=== PATIENT | female | born 2000 | race African-American/Black ===

== ENCOUNTER 2018-04-30 18:08 | Emergency (ER) | payer OTHER ==
[2018-04-30 18:48] LABS: BASO % 0.6 % (0.0-1.0); EOS # 0.1 10^3/uL (0.0-0.50); EOS % 0.7 % (0.0-3.0); HEMATOCRIT 40.3 % (36.0-47.0); IMMATURE GRANULOCYTE % 0.1 % (0-3.0); LYMPH # 3.1 10^3/uL (1.5-6.5); LYMPH % 43.2 % (24.0-44.0); MEAN CORPUSCULAR HEMOGLOBIN 27.4 pg (27.0-33.0); MEAN CORPUSCULAR HGB CONC 32.3 g/dl (32.0-36.5); MEAN CORPUSCULAR VOLUME 84.8 fl (80.0-96.0); MONO # 0.4 10^3/uL (0.0-0.8); MONO % 5.8 % (0.0-5.0); NEUTROPHILS # 3.6 10^3/uL (1.8-7.7); NEUTROPHILS % 49.6 % (36.0-66.0); PLATELET COUNT, AUTOMATED 300 10^3/uL (150-450); RED BLOOD COUNT 4.75 10^6/uL (4.00-5.40); WHITE BLOOD COUNT 7.2 10^3/uL (4.0-10.0)
[2018-04-30 19:07] LABS: CONTROL LINE HCG INT CTR LINE PRESENT; HCG, SERUM QUALITATIVE NEGATIVE (NEGATIVE)
[2018-04-30 19:17] LABS: ALBUMIN 3.6 GM/DL (3.2-5.2); ALBUMIN/GLOBULIN RATIO 0.97 (1.00-1.93); ALKALINE PHOSPHATASE 52 U/L (45-117); ALT/SGPT 12 U/L (12-78); AMYLASE 66 U/L (25-115); ANION GAP 8 MEQ/L (8-16); AST/SGOT 12 U/L (7-37); BILIRUBIN,DIRECT < 0.1 MG/DL (0.0-0.2); BILIRUBIN,TOTAL 0.2 MG/DL (0.2-1.0); BLOOD UREA NITROGEN 15 MG/DL (7-18); CALCIUM LEVEL 8.4 MG/DL (8.5-10.1); CARBON DIOXIDE LEVEL 24 MEQ/L (21-32); CHLORIDE LEVEL 108 MEQ/L (98-107); CREATININE FOR GFR 0.97 MG/DL (0.55-1.30); GLUCOSE, FASTING 90 MG/DL (70-100); LIPASE 66 U/L (73-393); SODIUM LEVEL 140 MEQ/L (136-145); TOTAL PROTEIN 7.3 GM/DL (6.4-8.2)
[2018-04-30 19:18] LABS: INR 1.08; PROTHROMBIN TIME 14.1 SECONDS (12.1-14.4)
[2018-04-30 20:34] LABS: CONTROL LINE UCG INT CTR LINE PRESENT; URINE PREG TEST NEGATIVE (NEGATIVE)
[2018-04-30 20:38] LABS: KETONE, URINE AUTO RFX NEGATIVE (NEGATIVE); NITRITE, URINE AUTO RFX NEGATIVE (NEGATIVE); RBC, URINE AUTO RFX 7 /HPF (0-3); SPECIFIC GRAVITY UR AUTO RFX 1.019 (1.002-1.035); SQUAM EPITHELIAL CELL UR AURFX 1 /HPF (0-6); WBC, URINE AUTO RFX 2 /HPF (0-3)
[2018-04-30 20:46] LABS: LEUKOCYTE ESTERASE UR AUTO RFX TRACE (NEGATIVE)
[2018-05-01] MEDS: metroNIDAZOLE (FLAGYL) 500 MG TAB PO (00:30)
[2018-05-01 01:27] LABS: CHLAMYDIA DNA AMPLIFICATION POSITIVE (NEGATIVE); GC DNA AMPLIFICATION NEGATIVE (NEGATIVE)
== END 2018-05-01 00:34 | disposition home or self-care (01) ==
LOC: M ED 05-01 00:34
DX: B37.3 Candidiasis of vulva and vagina (principal); Z79.3 Long term (current) use of hormonal contraceptives
CPT/HCPCS: 76856

== ENCOUNTER 2019-10-17 15:31 | Emergency (ER) | payer OTHER ==
[~2019-10-17] VITALS: Ht 175.3 cm; Wt 69.3 kg
[~2019-10-17 15:31] MED LIST: BIRTH CONTROL; FLAG500T PO
[2019-10-17 16:56] LABS: BASO % 0.3 % (0.0-1.0); EOS % 0.2 % (0.0-3.0); HEMATOCRIT 40.9 % (36.0-47.0); HEMOGLOBIN 13.2 g/dl (12.0-15.5); LYMPH % 21.7 % (24.0-44.0); MEAN CORPUSCULAR HEMOGLOBIN 27.7 pg (27.0-33.0); MEAN CORPUSCULAR HGB CONC 32.3 g/dl (32.0-36.5); MEAN CORPUSCULAR VOLUME 85.7 fl (80.0-96.0); MONO # 0.6 10^3/uL (0.0-0.8); MONO % 6.1 % (0.0-5.0); NEUTROPHILS # 6.6 10^3/uL (1.5-8.5); NEUTROPHILS % 71.4 % (36.0-66.0); PLATELET COUNT, AUTOMATED 309 10^3/uL (150-450); RED BLOOD COUNT 4.77 10^6/uL (4.00-5.40); WHITE BLOOD COUNT 9.2 10^3/uL (4.0-10.0)
[2019-10-17 17:20] LABS: ALBUMIN 3.7 GM/DL (3.2-5.2); ALT/SGPT 12 U/L (12-78); BILIRUBIN,DIRECT < 0.1 MG/DL (0.0-0.2); BILIRUBIN,TOTAL 0.3 MG/DL (0.2-1.0); BLOOD UREA NITROGEN 9 MG/DL (7-18); CALCIUM LEVEL 9.3 MG/DL (8.5-10.1); CARBON DIOXIDE LEVEL 27 MEQ/L (21-32); CHLORIDE LEVEL 109 MEQ/L (98-107); CREATININE FOR GFR 0.82 MG/DL (0.55-1.30); GLOMERULAR FILTRATION RATE > 60.0 (>60); GLUCOSE, FASTING 71 MG/DL (70-100); LIPASE 35 U/L (73-393); POTASSIUM SERUM 4.2 MEQ/L (3.5-5.1); SODIUM LEVEL 138 MEQ/L (136-145); TOTAL PROTEIN 7.5 GM/DL (6.4-8.2)
[2019-10-17] MEDS ORDERED: ISOVUE-370 76% 100ML VIAL (Q9967) As Ordered ONE (17:23)
--- NOTE | 2019-10-17 17:43 | REPVR ---
PROCEDURE INFORMATION: Exam: CT Abdomen And Pelvis With Contrast Exam date and time: 10/17/2019 5:28 PM Age: 19 years old Clinical indication: Abdominal pain; Localized; Right lower quadrant (rlq); Additional info: Rlq pain, h/o appendicitis TECHNIQUE: Imaging protocol: Computed tomography of the abdomen and pelvis with intravenous contrast. Axial, coronal and sagittal reformatted images were created and reviewed. Radiation optimization: All CT scans at this facility use at least one of these dose optimization techniques: automated exposure control; mA and/or kV adjustment per patient size (includes targeted exams where dose is matched to clinical indication); or iterative reconstruction. Contrast material: ISOVUE 370; Contrast volume: 100 ml; Contrast route: IV; COMPARISON: US PELVIC NON-OB COMPLETE 04/30/2018 10:19 PM FINDINGS: Liver: 7 mm low-density lesion in the hepatic dome, too small to characterize. Gallbladder and bile ducts: No radiodense gallstones. No biliary ductal dilatation. Pancreas: Unremarkable. Spleen: Unremarkable. Adrenals: Unremarkable. Kidneys and ureters: Right urothelial thickening and enhancement with associated periureteral edema. No radiodense calculi. No hydronephrosis. Stomach and bowel: No bowel wall thickening. No obstruction. No pneumatosis. Appendix: Normal. Intraperitoneal space: No free fluid. No organized fluid collection. No free air. Vasculature: Unremarkable. No aneurysm. Lymph nodes: No pathologically enlarged lymph nodes. Bladder: Mild circumferential urinary bladder wall thickening and perivesicular edema. Reproductive: Unremarkable. Bones/joints: No acute osseous abnormality. Soft tissues: Unremarkable. IMPRESSION: 1. Ascending right urinary tract infection, as described above. 2. Additional findings, as above. Electronically signed by: Jarad Price On 10/17/2019 17:42:40 PM
[2019-10-17] MEDS ORDERED: FLAG500T PO (17:57)
[2019-10-17] MEDS ORDERED: CIPR-249 PO (17:57)
[2019-10-17] MEDS ORDERED: cefTRIAXone SOD 1 GM in D5W MINI-BAG PLUS 50 ML IV ONE (18:00)
[2019-10-17 18:21] LABS: CHLAMYDIA DNA AMPLIFICATION NEGATIVE (NEGATIVE); GC DNA AMPLIFICATION POSITIVE (NEGATIVE)
[2019-10-17 18:43] VITALS: BP 129/67
[2019-10-19] MEDS ORDERED: DOXY100C37 PO (11:03)
== END 2019-10-17 18:46 | disposition home or self-care (01) ==
LOC: M ED 15:31 → EEVIPCON 15:31 → M ED 18:46
DX: N10 Acute pyelonephritis (principal); N39.0 Urinary tract infection, site not specified; N76.0 Acute vaginitis; A54.9 Gonococcal infection, unspecified
CPT/HCPCS: 74177; 80048; 80076; 81001; 83690; 84702; 85025; 87088; 87186; 87210; 87661; 96365; 99284; J0696; Q9967

== ENCOUNTER 2020-05-22 17:26 | Emergency (ER) | payer OTHER ==
[~2020-05-22] VITALS: Ht 175.3 cm; Wt 73.0 kg
[~2020-05-22 17:26] MED LIST changes: +CIPR-249 PO; +DOXY100C37 PO
[2020-05-22 19:37] LABS: BASO % 0.5 % (0.0-1.0); EOS # 0.1 10^3/uL (0.0-0.5); EOS % 0.7 % (0.0-3.0); HEMATOCRIT 42.9 % (36.0-47.0); HEMOGLOBIN 13.7 g/dl (12.0-15.5); LYMPH # 2.5 10^3/uL (1.5-5.0); LYMPH % 33.7 % (24.0-44.0); MEAN CORPUSCULAR HEMOGLOBIN 27.3 pg (27.0-33.0); MEAN CORPUSCULAR HGB CONC 31.9 g/dl (32.0-36.5); MEAN CORPUSCULAR VOLUME 85.6 fl (80.0-96.0); MONO # 0.3 10^3/uL (0.0-0.8); MONO % 4.5 % (0.0-5.0); NEUTROPHILS # 4.5 10^3/uL (1.5-8.5); NEUTROPHILS % 60.5 % (36.0-66.0); PLATELET COUNT, AUTOMATED 307 10^3/uL (150-450); RED BLOOD COUNT 5.01 10^6/uL (4.00-5.40); WHITE BLOOD COUNT 7.5 10^3/uL (4.0-10.0)
[2020-05-22 20:07] LABS: ALT/SGPT 13 U/L (12-78); BILIRUBIN,DIRECT < 0.1 MG/DL (0.0-0.2); BILIRUBIN,TOTAL 0.3 MG/DL (0.2-1.0); CK-MB VALUE MASS < 1.0 NG/ML (<3.6); CPK CREATINE PHOSPHOKINASE 194 U/L (26-192); MB/CK RELATIVE INDEX 0.52 (< OR =4); NT-PRO BNP 6 PG/ML (<125); THYROID STIMULATING HORMONE 0.435 uIU/ML (0.358-3.740); THYROXINE (T4) 7.9 UG/DL (4.5-12.0); TOTAL PROTEIN 7.2 GM/DL (6.4-8.2); TROPONIN I < 0.02 NG/ML (< 0.10)
--- NOTE | 2020-05-22 20:23 | REP ---
INDICATION: DYSPNEA/COUGH. COMPARISON: None. TECHNIQUE: Two views FINDINGS: Lung palacios are well inflated without infiltrate, effusion, atelectasis or mass. The heart, mediastinal hilar contours are normal. The aorta and airway were unremarkable. No widening of the mediastinum. Bony thorax shows no focal lesion. IMPRESSION: No acute cardiopulmonary disease. <Electronically signed by Carlos Rivera > 05/22/20 2019
[2020-05-22 20:42] VITALS: BP 122/61
--- NOTE | 2020-05-23 16:56 | ECGEPIP ---
[facility] - ED Test Date: 2020-05-22 Pat Name: LION GARCIA Department: Room: - Gender: Female House Mover: NOBLE : 2000 Requested By: SIDNEY VACA PA-C Order Number: [id number] Reading MD: Viviana Lynn Measurements Intervals [place] Rate: 65 P: 60 WY: 146 QRS: 69 QRSD: 88 T: 41 QT: 388 QTc: 406 Interpretive Statements SINUS RHYTHM NSTTW abnormalities NO PRIOR Electronically Signed on 05-23-2020 16:55:59 EST by Viviana Lynn
== END 2020-05-22 21:14 | disposition home or self-care (01) ==
LOC: M ED 17:26
DX: R06.02 Shortness of breath (principal); F33.9 Major depressive disorder, recurrent, unspecified

== ENCOUNTER 2020-06-08 05:40 | Emergency (ER) | payer OTHER ==
[~2020-06-08] VITALS: Ht 175.3 cm; Wt 73.2 kg
[2020-06-08] MEDS ORDERED: NS 1,000 ML IV ONE (06:45)
[2020-06-08 06:54] LABS: BASO % 0.8 % (0.0-1.0); EOS # 0.1 10^3/uL (0.0-0.5); EOS % 1.2 % (0.0-3.0); HEMATOCRIT 40.8 % (36.0-47.0); HEMOGLOBIN 12.7 g/dl (12.0-15.5); LYMPH # 2.5 10^3/uL (1.5-5.0); LYMPH % 50.9 % (24.0-44.0); MEAN CORPUSCULAR HEMOGLOBIN 26.8 pg (27.0-33.0); MEAN CORPUSCULAR HGB CONC 31.1 g/dl (32.0-36.5); MEAN CORPUSCULAR VOLUME 86.1 fl (80.0-96.0); MONO # 0.3 10^3/uL (0.0-0.8); MONO % 6.8 % (0.0-5.0); NEUTROPHILS # 1.9 10^3/uL (1.5-8.5); NEUTROPHILS % 40.1 % (36.0-66.0); PLATELET COUNT, AUTOMATED 300 10^3/uL (150-450); RED BLOOD COUNT 4.74 10^6/uL (4.00-5.40); WHITE BLOOD COUNT 4.9 10^3/uL (4.0-10.0)
[2020-06-08 07:16] LABS: ALBUMIN 3.8 GM/DL (3.2-5.2); ALT/SGPT 14 U/L (12-78); BILIRUBIN,DIRECT < 0.1 MG/DL (0.0-0.2); BILIRUBIN,TOTAL 0.2 MG/DL (0.2-1.0); BLOOD UREA NITROGEN 16 MG/DL (7-18); CARBON DIOXIDE LEVEL 28 MEQ/L (21-32); CHLORIDE LEVEL 109 MEQ/L (98-107); CREATININE FOR GFR 0.89 MG/DL (0.55-1.30); GLOMERULAR FILTRATION RATE > 60.0 (>60); GLUCOSE, FASTING 91 MG/DL (70-100); LIPASE 57 U/L (73-393); POTASSIUM SERUM 4.3 MEQ/L (3.5-5.1); SODIUM LEVEL 141 MEQ/L (136-145)
[2020-06-08 07:24] LABS: HCG, SERUM QUALITATIVE NEGATIVE (NEGATIVE)
[2020-06-08] MEDS ORDERED: ISOVUE-370 76% 100ML VIAL As Ordered ONE (07:41)
[2020-06-08] MEDS ORDERED: KETOROLAC 30 MG/ML 1ML VIAL IV ONE (07:45)
--- NOTE | 2020-06-08 08:17 | REP ---
INDICATION: rlq pain, acute sharp. COMPARISON: 10/17/2019 TECHNIQUE: Axial contrast-enhanced images from the lung bases to the pubic symphysis using 100 cc Isovue 370 intravenous contrast material. Coronal and sagittal reformations obtained. This CT examination was performed using the following dose reduction techniques: Automated exposure control, adjustment of mA and/or kv according to the patient's size, and the use of iterative reconstruction technique. FINDINGS: Liver, spleen, pancreas, gallbladder, bilateral adrenal glands and kidneys are normal. The enteric system demonstrates moderate to significant fecal stasis which may be related to patient's symptoms and pain. A normal terminal ileum, cecum and appendix are identified in the right lower quadrant. Pelvis demonstrates normal bladder and age-appropriate uterus/adnexa. No ascites. No free air. No intraperitoneal or retroperitoneal adenopathy. Abdominal aorta and vasculature appear normal. Musculoskeletal structures are intact and without acute osseous abnormality. IMPRESSION: Moderate to significant fecal stasis which may be related to patient's symptoms. Normal appendix. No ascites, inflammatory stranding, or free air. No further acute abdominopelvic pathology appreciated. <Electronically signed by Cale Muñoz > 06/08/20 0867
[2020-06-08] MEDS ORDERED: COLA100C5 PO (08:22)
[2020-06-08] MEDS ORDERED: MAGN100T PO (08:22)
[2020-06-08] MEDS ORDERED: MACR100C43 PO (08:23)
[2020-06-08 08:37] VITALS: BP 110/58
== END 2020-06-08 08:39 | disposition home or self-care (01) ==
LOC: M ED 05:40
DX: K59.00 Constipation, unspecified (principal); N39.0 Urinary tract infection, site not specified
CPT/HCPCS: 74177; 80048; 80076; 81001; 83690; 84703; 85025; 87086; 96361; 96374; 99284; J1885; Q9967

== ENCOUNTER → 2020-06-22 | Outpatient (CLI) | payer OTHER ==
[~2020-06-22] MED LIST changes: +COLA100C5 PO; +MACR100C43 PO; +MAGN100T PO
--- NOTE | 2020-06-22 15:54 | PFTRPT ---
Height: 69.00 Inches Weight: 158.00 Lbs BSA: 1.87 Diagnosis: SOB DATE: 06/22/2020 ORDERING PHYSICIAN: NAHEED Jansen Pre and post bronchodilator studies have excellent technical quality. Forced vital capacity is normal. FEV1 is in proportion. Obstructive index is therefore normal. Expiratory limit of the flow-volume loop raises a question of suboptimal performance of the required maneuvers. No significant bronchodilator response is identified. Total lung capacity is normal. Residual volume raises a question of air trapping, again although performance of the maneuver was suboptimal. Diffusing capacity is normal and remains normal and uncorrected for alveolar volume. No hemoglobin available for correction. Airway resistance and conductance are normal. IMPRESSION: Cannot rule out a degree of air trapping versus suboptimal performance of the required maneuvers. No other identified abnormalities. Please correlate clinically. MTDD
== END ==
LOC: M CARPUL 15:20
PROVIDERS: ATTEND Nurse Practitioner
DX: R06.00 Dyspnea, unspecified (principal)

== ENCOUNTER 2020-08-31 19:31 | Emergency (ER) | payer OTHER ==
[~2020-08-31] VITALS: Ht 175.3 cm; Wt 75.1 kg
[2020-08-31 19:33] VITALS: BP 118/74
--- OUTSIDE RECORDS SUMMARY | 2020-08-31 19:40 | CCD | Continuity of Care Document ---
Author Author Nelda LOPEZ SUPERVISOR PHOTOENGRAVING Organization Unknown Address [address] [place] [phone] Phone [phone] Care Team Providers Care Lead Burner Helper Name Role Phone Karoline ReaP AUTM [phone] Problems Description No Information Available Social History Type Date Description Comments Sex Unknown Tobacco Use Start: Unknown Never Smoked Cigarettes Smoking Status Reviewed: 06/23/20 Never Smoked Cigarettes ETOH Use Rarely consumes alcohol Allergies, Adverse Reactions, Alerts Description No Known Drug Allergies Medications Description No Information Available Immunizations Description No Information Available Vital Signs Date Vital Result Comment 06/23/2020 1:55pm BP Systolic 115 mmHg BP Diastolic 75 mmHg Heart Rate 65 /min Body Temperature 97.0 F Height 68 inches 5'8" Weight 159.00 lb BMI (Body Mass Index) 24.2 kg/m2 O2 % BldC Oximetry 99 % Results Description No Information Available Procedures Description No Information Available Medical Devices Description No Information Available Encounters Type Date Location Provider Dx Diagnosis Office Visit 06/23/2020 1:45p DR. 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 Pt states developed SOB and went to [facility] ER for evaluation. Labs done at [facility] 04/21/2020- TSH= 0.435Pt states her PCM rechecked TSH and it was worse. Labs done 06/02/2020- TSH: 0.010 Free T4: 0.93 No FH, no goiter on exam. TSH is suppressed consistent with hyperthyroidism. Differential diagnosis includes Grave's disease, thyroiditis, or hot nodule. Doubt Grave's. Did not appreciate goiter or nodules. This may be more consistent with thyroiditis. Will recheck TSH, FT4, add TT3, TGABPt agrees to planRTO 2 weeks. * Follow up:* RTO 2 weeks. JEFF Functional Status Description No Information Available Mental Status Description No Information Available Referrals Refer to Dr Reason for Referral Status Appt Date Roxie Estes MD thyroid Created [address] [place] [phone] Roxie Estes MD thyroid Created [address] [place] [phone]
--- OUTSIDE RECORDS SUMMARY | 2020-08-31 19:40 | CCD | Continuity of Care Document ---
Author Author Nelad LOPEZ BUSINESS SERVICES SALES AGENT Organization Unknown Address [address] [place] [address] Phone [phone] Care Team Providers Care Underwear Welter Name Role Phone Karoline Rea Ashleigh FARFAN AUTM [phone] Problems Description No Information Available Social History Type Date Description Comments Sex Unknown Tobacco Use Start: Unknown Never Smoked Cigarettes Smoking Status Reviewed: 07/06/20 Never Smoked Cigarettes ETOH Use Rarely consumes alcohol Allergies, Adverse Reactions, Alerts Description No Known Drug Allergies Medications Description No Information Available Immunizations Description No Information Available Vital Signs Date Vital Result Comment 07/06/2020 2:51pm BP Systolic 118 mmHg BP Diastolic 65 mmHg Heart Rate 81 /min Body Temperature 97.0 F Height 68 inches 5'8" Weight 161.00 lb BMI (Body Mass Index) 24.5 kg/m2 O2 % BldC Oximetry 99 % 06/23/2020 1:55pm BP Systolic 115 mmHg BP Diastolic 75 mmHg Heart Rate 65 /min Body Temperature 97.0 F Height 68 inches 5'8" Weight 159.00 lb BMI (Body Mass Index) 24.2 kg/m2 O2 % BldC Oximetry 99 % Results Description No Information Available Procedures Description No Information Available Medical Devices Description No Information Available Encounters Type Date Location Provider Dx Diagnosis Office Visit 07/06/2020 2:45p DR. 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 Roxie Estes 07/06/2020 - Munira Lopez NP* E05.00 Thyrotoxicosis with diffuse goiter without thyrotoxic crisis or storm* New Labs:* TSH & Free T4, Scheduled: 08/17/20 * Comments:* Pt here for evaluation of low TSH. Pt states developed SOB and went to [facility] ER for evaluation. Labs done at [facility] 04/21/2020- TSH= 0.435Pt states her PCM rechecked TSH and it was worse. Labs done 06/02/2020- TSH: 0.010 Free T4: 0.93 No FH, no goiter on exam. TSH is suppressed consistent with hyperthyroidism. Differential diagnosis includes Grave's disease, thyroiditis, or hot nodule. Doubt Grave's. Did not appreciate goiter or nodules. This may be more consistent with thyroiditis. Labs done 06/29/2020- TSH= 1.230, FT4= 0.90, TT3= 118.1, TGAB= pendingMost likely thyroiditis Will recheck TSH, FT4 in 2 months. * Follow up:* RTO 2 months JEFF- can do virtual Functional Status Description No Information Available Mental Status Description No Information Available Referrals Refer to Dr Reason for Referral Status Appt Date Roxie Estes MD thyroid Created [address] [place] [phone] Roxie Estes MD thyroid Created [address] [place] [phone]
--- OUTSIDE RECORDS SUMMARY | 2020-08-31 19:40 | CCD | Continuity of Care Document ---
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 Pt states developed SOB and went to [facility] ER for evaluation. Labs done at [facility] 04/21/2020- TSH= 0.435Pt states her PCM rechecked [...] Description No Information Available Referrals Refer to Reason for Referral Status Appt Date Roxie Estes MD thyroid Created [address] [place] [phone] Roxie Estes MD thyroid Created [address] [place] [phone]
--- OUTSIDE RECORDS SUMMARY | 2020-08-31 19:41 | CCD | Continuity of Care Document ---
Author Author Nelda LOPEZ TRASH COLLECTOR Organization Unknown Address [address] [place] [phone] Phone [phone] Care Team Providers Care Political Science Chair Name Role Phone Karoline ReaP AUTM [phone] Problems Description No Information Available Social History [...] Pt states developed SOB and went to [facility] ER for evaluation. Labs done at [facility] 04/21/2020- TSH= 0.435Pt states her PCM [...] Appt Date Roxie Estes MD thyroid Created [address] [place] [phone] Roxie Estes MD thyroid Created [address] [place] [phone]
--- OUTSIDE RECORDS SUMMARY | 2020-08-31 19:41 | CCD ---
Author Author [facility] Organization [facility] Address Unknown Phone Unavailable Care Team Providers Care Light Technician Name Role Phone COOK, B CARTER MANAGER WHOLESALE Unavailable Unavailable COOK, B CARTER MANAGER WHOLESALE Unavailable Unavailable COOK, B CARTER MANAGER WHOLESALE Unavailable Unavailable COOK, B CARTER MANAGER WHOLESALE Unavailable Unavailable COOK, B CARTER MANAGER WHOLESALE Unavailable Unavailable COOK, B CARTER MANAGER WHOLESALE Unavailable Unavailable COOK, B CARTER MANAGER WHOLESALE Unavailable Unavailable COOK, B CARTER MANAGER WHOLESALE Unavailable Unavailable COOK, B CARTER MANAGER WHOLESALE Unavailable Unavailable COOK, B CARTER MANAGER WHOLESALE Unavailable Unavailable COOK, B CARTER MANAGER WHOLESALE Unavailable Unavailable COOK, B CARTER MANAGER WHOLESALE Unavailable Unavailable COOK, B CARTER MANAGER WHOLESALE Unavailable Unavailable COOK, B CARTER MANAGER WHOLESALE Unavailable Unavailable COOK, B CARTER MANAGER WHOLESALE Unavailable Unavailable COOK, B CARTER MANAGER WHOLESALE Unavailable Unavailable COOK, B CARTER MANAGER WHOLESALE Unavailable Unavailable COOK, B CARTER MANAGER WHOLESALE Unavailable Unavailable COOK, B CARTER MANAGER WHOLESALE Unavailable Unavailable COOK, B CARTER MANAGER WHOLESALE Unavailable Unavailable COOK, B CARTER MANAGER WHOLESALE Unavailable Unavailable COOK, B CARTER MANAGER WHOLESALE Unavailable Unavailable COOK, B CARTER MANAGER WHOLESALE Unavailable Unavailable COOK, B CARTER MANAGER WHOLESALE Unavailable Unavailable COOK, B CARTER MANAGER WHOLESALE Unavailable Unavailable COOK, B CARTER MANAGER WHOLESALE Unavailable Unavailable COOK, B CARTER MANAGER WHOLESALE Unavailable Unavailable COOK, B CARTER MANAGER WHOLESALE Unavailable Unavailable COOK, B CARTER MANAGER WHOLESALE Unavailable Unavailable COOK, B CARTER MANAGER WHOLESALE Unavailable Unavailable COOK, B CARTER MANAGER WHOLESALE Unavailable Unavailable COOK, B CARTER MANAGER WHOLESALE Unavailable Unavailable COOK, B CARTER MANAGER WHOLESALE Unavailable Unavailable COOK, B CARTER MANAGER WHOLESALE Unavailable Unavailable COOK, B CARTER MANAGER WHOLESALE Unavailable Unavailable COOK, B CARTER MANAGER WHOLESALE Unavailable Unavailable COOK, B CARTER MANAGER WHOLESALE Unavailable Unavailable COOK, B CARTER MANAGER WHOLESALE Unavailable Unavailable COOK, B CARTER MANAGER WHOLESALE Unavailable Unavailable COOK, B CARTER MANAGER WHOLESALE Unavailable Unavailable COOK, B CARTER MANAGER WHOLESALE Unavailable Unavailable COOK, B CARTER MANAGER WHOLESALE Unavailable Unavailable COOK, B CARTER MANAGER WHOLESALE Unavailable Unavailable COOK, B CARTER MANAGER WHOLESALE Unavailable Unavailable COOK, B CARTER MANAGER WHOLESALE Unavailable Unavailable COOK, B CARTER MANAGER WHOLESALE Unavailable Unavailable COOK, B CARTER MANAGER WHOLESALE Unavailable Unavailable COOK, B CARTER MANAGER WHOLESALE Unavailable Unavailable COOK, B CARTER MANAGER WHOLESALE Unavailable Unavailable COOK, B CARTER MANAGER WHOLESALE Unavailable Unavailable COOK, B CARTER MANAGER WHOLESALE Unavailable Unavailable COOK, B CARTER MANAGER WHOLESALE Unavailable Unavailable COOK, B CARTER MANAGER WHOLESALE Unavailable Unavailable COOK, B CARTER MANAGER WHOLESALE Unavailable Unavailable COOK, B CARTER MANAGER WHOLESALE Unavailable Unavailable COOK, B CARTER MANAGER WHOLESALE Unavailable Unavailable COOK, B CARTER MANAGER WHOLESALE Unavailable Unavailable COOK, B CARTER MANAGER WHOLESALE Unavailable Unavailable COOK, B CARTER MANAGER WHOLESALE Unavailable Unavailable COOK, B CARTER MANAGER WHOLESALE Unavailable Unavailable COOK, B CARTER MANAGER WHOLESALE Unavailable Unavailable COOK, B CARTER MANAGER WHOLESALE Unavailable Unavailable COOK, B CARTER MANAGER WHOLESALE Unavailable Unavailable COOK, B CARTER MANAGER WHOLESALE Unavailable Unavailable TEQUILA VALDIVIA Unavailable Unavailable Marco Antonio, E CRM MARKETING ANALYST Karoline Unavailable [phone] Marco Antonio, E CRM MARKETING ANALYST Karoline Unavailable [phone] Marco Antonio, E CRM MARKETING ANALYST Karoline Unavailable [phone] Marco Antonio, E CRM MARKETING ANALYST Karoline Unavailable [phone] Marco Antonio, E CRM MARKETING ANALYST Karoline Unavailable [phone] Marco Antonio, E CRM MARKETING ANALYST Karoline Unavailable [phone] Marco Antonio, E CRM MARKETING ANALYST Karoline Unavailable [phone] Marco Antonio, E CRM MARKETING ANALYST Karoline Unavailable [phone] Marco Antonio, E CRM MARKETING ANALYST Karoline Unavailable [phone] Marco Antonio, E CRM MARKETING ANALYST [place] Unavailable [phone] Marco Antonio, E CRM MARKETING ANALYST Karoline Unavailable [phone] Marco Antonio, E CRM MARKETING ANALYST Karoline Unavailable [phone] Marco Antonio, E CRM MARKETING ANALYST Karoline Unavailable [phone] Marco Antonio, E CRM MARKETING ANALYST Karoline Unavailable [phone] Marco Antonio, E CRM MARKETING ANALYST Karoline Unavailable [phone] Marco Antonio, E CRM MARKETING ANALYST Karoline Unavailable [phone] NO, PCP Unavailable Unavailable Re-disclosure Warning The records that you are about to access may contain information from federally-assisted alcohol or drug abuse programs. If such information is present, then the following federally mandated warning applies: This information has been disclosed to you from records protected by federal confidentiality rules (42 CFR part 2). The federal rules prohibit you from making any further disclosure of this information unless further disclosure is expressly permitted by the written consent of the person to whom it pertains or as otherwise permitted by 42 CFR part 2. A general authorization for the release of medical or other information is NOT sufficient for this purpose. The Federal rules restrict any use of the information to criminally investigate or prosecute any alcohol or drug abuse patient.The records that you are about to access may contain highly sensitive health information, the redisclosure of which is protected by Article 27-F of the [facility] Public Health law. If you continue you may have access to information: Regarding HIV / AIDS; Provided by facilities licensed or operated by the [facility] Office of Mental Health; or Provided by the [facility] Office for People With Developmental Disabilities. If such information is present, then the following [facility] mandated warning applies: This information has been disclosed to you from confidential records which are protected by state law. State law prohibits you from making any further disclosure of this information without the specific written consent of the person to whom it pertains, or as otherwise permitted by law. Any unauthorized further disclosure in violation of state law may result in a fine or nursing home sentence or both. A general authorization for the release of medical or other information is NOT sufficient authorization for further disc losure. Encounters Encounter Providers Location Date Indications Data Source(s ) Outpatient Attender: CARTER POTTER NP Physical Therapy 07/06/2020 0 1:45:00 PM [facility]IL[facility] STALEY ([facility]) Outpatient Attender: Karoline Rea 07/02/2020 10:38:23 AM EST - 07/03/2020 09:05:00 AM [facility] Patient discharged. Outpatient Attender: TEQUILA VALDIVIA 06/29/2020 10:27:00 AM EST L65.8 [facility] L65.8 Outpatient Attender: CARTER POTTER NP Physical Therapy 06/23/2020 1 2:45:00 PM EST LUÍS ([facility]) Outpatient Attender: Karoline Rea 06/16/2020 01:57:00 PM EST - 06/16/2020 02:57:00 PM [facility] Patient discharged. Outpatient Attender: Karoline ReaConsultant: PCP NO 06/01/2020 12:13:30 PM EST - 06/02/2020 02:51:00 PM [facility] Patient discharged. Outpatient 11/05/2019 04:57:00 AM EDT [facility] Insurance Providers Payer name Policy type / Coverage type Policy ID Covered republican ID Covered republican's relationship to millan Policy Millan Plan Information [facility] [employer] [id number] SP [id number] [facility] HUMANA - O/P [id number] 18 [id number] [facility] O [id number] S [id number] Problems, Conditions, and Diagnoses Code Display Name Description Problem Type Effective Dates Data Source(s) R99 Ill-defined and unknown cause of mortali ty Ill-defined and unknown cause of mortality Diagnosis 07/03/2020 08:05:00 AM [facility] [id number] Migraine without aura, not intractable, without status migrainosus Migraine without aura, not intractable, without status migrainosus Diagnosis 06/16/2020 01:57:00 PM [facility] Results ID Date Data Source [id number] 06/29/2020 10:53:00 AM [facility] Name Value Range Interpretation Code Description Data Gracy rce(s) Supporting Document(s) Leukocytes [#/volume] in Blood by Automated count 7.0 10*3/uL 4.45-10 .71 [facility] Erythrocytes [#/volume] in Blood by Automated count 4.62 10*6/uL 4.20 -5.40 N [facility] Hemoglobin [Moles/volume] in Blood 12.5 g/dL 10.7-15.4 N [facility] Hematocrit [Volume Fraction] of Blood by Automated count 39.9 % 3 7-47 N [facility] Erythrocyte mean corpuscular volume [Ent itic volume] in Cord blood by Automated count 86.4 fL 80-96 N [facility] Erythrocyte mean corpuscular hemoglobin [Entitic mass] by Automated count 27.1 pg 27-31 N [facility] Erythrocyte mean corpuscular hemoglobin concentration [Mass/volume] in Cord blood 31.3 g/dL 33-37 Below low normal [facility] Erythrocyte distribution width [Entitic volume] by Automated count 13 % 11-15 N [facility] Platelets [#/volume] in Blood by Automated count 268 10*3/uL 130-472 N [facility] Platelet mean volume [Entitic volume] in Blood 9.8 fL 9.1-13.1 N [facility] Neutrophils/100 leukocytes in Blood by Automated count 64.4 % 41- 77 N [facility] Neutrophils [#/volume] in Blood by Automated count 4.5 U 1.7-7.6 N [facility] Lymphocytes/100 leukocytes in Blood by Automated count 30.7 % 14- 46 N [facility] Lymphocytes [#/volume] in Blood by Automated count 2.1 U 0.6-4.6 N [facility] Monocytes/100 leukocytes in Blood by Automated count 4.3 % 4-12 N [facility] Monocytes [#/volume] in Blood by Automated count 0.3 U 0.2-1.2 N [facility] Eosinophils/100 leukocytes in Blood by Automated count 0.1 % 0-7 N [facility] Eosinophils [#/volume] in Blood by Automated count 0.0 U 0.0-0.5 N [facility] Basophils/100 leukocytes in Blood by Automated count 0.4 % 0.4-1 .3 N [facility] Basophils [#/volume] in Blood by Automated count 0.0 U 0.0-0.2 N [facility] NUCLEATED RED BLOOD CELL 0 % [facility] NUCLEATED RED BLOOD CELL# 0 U [facility] Immature granulocytes [Presence] in Blood by Automated count 0-2 N [facility] Immature granulocytes [#/volume] in Blood by Automated count 0.0 U 0-0.1 N [facility] Manual Differential panel - Blood NO [facility] ID Date Data Source [id number] 06/29/2020 11:24:00 AM [facility] Name Value Range Interpretation Code Description Data Gracy rce(s) Supporting Document(s) Iron [Mass/volume] in Serum or Plasma 82 ug/dL 50-170 N [facility] Iron values may be falsely elevated in s anam samples frompatients treated with anticoagulants (e.g., hemodialysispatients) Iron binding capacity [Moles/volume] in Serum or Plasma 24 20 -55 N [facility] Iron binding capacity [Mass/volume] in Serum or Plasma 348 ug/dL 250 -450 N [facility] ID Date Data Source [id number] 06/29/2020 11:24:00 AM [facility] Name Value Range Interpretation Code Description Data Gracy rce(s) Supporting Document(s) Thyroxine (T4) free [Mass/volume] in Serum or Plasma 0.97 ng/dL 0.89- 1.76 N [facility] ID Date Data Source [id number] 06/29/2020 11:24:00 AM [facility] Name Value Range Interpretation Code Description Data Gracy rce(s) Supporting Document(s) Thyrotropin [Units/volume] in Serum or Plasma by Detec tion limit <= 0.005 mIU/L 1.48 u[iU]/mL 0.35-5.50 [facility] al ID Date Data Source [id number] 06/18/2020 09:47:00 [place] [address] PHONE: [phone] FAX: [phone] Name .................. : RADHA Connolly Acct Number.................. : [id number] ROOM. ................. : MR Number ................... : [id number] Stay type ............. : O/P Discharge Date......... ... : 06/16/20 Admit Date ......... : 06/16/20 Admit Phys .................... : MARCO ANTONIO HARDIN Date of ....... : 2000 Family Phys ................... : UNKNOWN CO Phone .................. : [phone] Age ................................ : 20 Film# .................. .:[id number] Sex ................................. : F Unsigned transcriptions are preliminary reports and do not represent a medical or legal document MRI BRAIN W/O CONTRAST [id number] COMPLETE:06/16/20 15:00 [facility] [id number] (REASON FOR PROCEDURE MIGRAINES MRI OF THE BRAIN WITHOUT CONTRAST: FINDINGS: Space occupying mass, mass effect or midline shift is not appreciated. Acute ischemic event is not seen on diffusion-weighted imaging. The subarachnoid cisterns are normal in appearance. The ventricles are normal in size and contour. White matter signal abnormality is not seen on inversion and recovery imaging. There is no evidence of demyelinating process. The pituitary gland is unremarkable. The contents of the posterior fossa are normal in appearance. The sinuses, orbits, mastoid air cells and skull are unremarkable. IMPRESSION: No pathology seen on MRI brain. Electronically Reviewed and Signed By Rhiannon Noe MD , 06/18/20 09:47, [facility] Transcribe Initials: PIOTR , Transcribe Date: 06/16/20 23:25, Dictation Date: Copy for: MARCO ANTONIO MONTEMAYOR Copy for: 710 MED REC Page 1 of 1 Name Value Range Interpretation Code Description Data Gracy rce(s) Supporting Document(s) Procedure Social History Code Duration Value Status Description Data Source(s ) Smoking 07/06/2020 12:00:00 AM EST Never Smoked Cigarettes com pleted Never Smoked Cigarettes [facility] ([facility]) Vital Signs ID Date Data Source UNK Name Value Range Interpretation Code Description Data Source(s) Oxygen saturation in Arterial blood by Pulse oximetry 99 % 99 % [facility] ([facility]) Body mass index (BMI) [Ratio] 24.5 kg/m2 24.5 k g/m2 [facility] ([facility]) Body weight 161.00 [lb_av] 161.00 [lb_av] [facility] T ([facility]) Body height 68 [in_i] 68 [in_i] [facility] ([facility]) 5'8" Body temperature 97.0 [degF] 97.0 [degF] [facility] ([facility]) Heart rate 81 /min 81 /min [facility] ([facility]) Diastolic blood pressure 65 mm[Hg] 65 mm[Hg] [facility] ([facility]) Systolic blood pressure 118 mm[Hg] 118 mm[Hg] M [facility] ([facility]) Oxygen saturation in Arterial blood by Pulse oximetry 99 % 99 % [facility] ([facility]) Body mass index (BMI) [Ratio] 24.2 kg/m2 24.2 k g/m2 [facility] ([facility]) Body weight 159.00 [lb_av] 159.00 [lb_av] [facility] T ([facility]) Body height 68 [in_i] 68 [in_i] [facility] ([facility]) 5'8" Body temperature 97.0 [degF] 97.0 [degF] [facility] ([facility] Heart rate 65 /min 65 /min [facility] ([facility] Diastolic blood pressure 75 mm[Hg] 75 mm[Hg] [facility] ([facility] Systolic blood pressure 115 mm[Hg] 115 mm[Hg] M [facility] ([facility])
[2020-08-31] MEDS ORDERED: PERC5TAB12 PO (19:43)
[2020-08-31] MEDS ORDERED: IBUP-1022 PO (19:43)
--- OUTSIDE RECORDS SUMMARY | 2020-08-31 21:08 | CCD ---
Author Author [facility] Organization [facility] Address Unknown Phone Unavailable Care Team Providers Care Manager Country Name Role Phone COOK, B CARTER FANCY WIRE DRAWER Unavailable Unavailable COOK, B CARTER FANCY WIRE DRAWER Unavailable Unavailable COOK, B CARTER FANCY WIRE DRAWER Unavailable Unavailable COOK, B CARTER FANCY WIRE DRAWER Unavailable Unavailable COOK, B CARTER FANCY WIRE DRAWER Unavailable Unavailable COOK, B CARTER FANCY WIRE DRAWER Unavailable Unavailable COOK, B CARTER FANCY WIRE DRAWER Unavailable Unavailable COOK, B CARTER FANCY WIRE DRAWER Unavailable Unavailable COOK, B CARTER FANCY WIRE DRAWER Unavailable Unavailable COOK, B CARTER FANCY WIRE DRAWER Unavailable Unavailable COOK, B CARTER FANCY WIRE DRAWER Unavailable Unavailable COOK, B CARTER FANCY WIRE DRAWER Unavailable Unavailable COOK, B CARTER FANCY WIRE DRAWER Unavailable Unavailable COOK, B CARTER FANCY WIRE DRAWER Unavailable Unavailable COOK, B CARTER FANCY WIRE DRAWER Unavailable Unavailable COOK, B CARTER FANCY WIRE DRAWER Unavailable Unavailable COOK, B CARTER FANCY WIRE DRAWER Unavailable Unavailable COOK, B CARTER FANCY WIRE DRAWER Unavailable Unavailable COOK, B CARTER FANCY WIRE DRAWER Unavailable Unavailable COOK, B CARTER FANCY WIRE DRAWER Unavailable Unavailable COOK, B CARTER FANCY WIRE DRAWER Unavailable Unavailable COOK, B CARTER FANCY WIRE DRAWER Unavailable Unavailable COOK, B CARTER FANCY WIRE DRAWER Unavailable Unavailable COOK, B CARTER FANCY WIRE DRAWER Unavailable Unavailable COOK, B CARTER FANCY WIRE DRAWER Unavailable Unavailable COOK, B CARTER FANCY WIRE DRAWER Unavailable Unavailable COOK, B CARTER FANCY WIRE DRAWER Unavailable Unavailable COOK, B CARTER FANCY WIRE DRAWER Unavailable Unavailable COOK, B CARTER FANCY WIRE DRAWER Unavailable Unavailable COOK, B CARTER FANCY WIRE DRAWER Unavailable Unavailable COOK, B CARTER FANCY WIRE DRAWER Unavailable Unavailable COOK, B CARTER FANCY WIRE DRAWER Unavailable Unavailable COOK, B CARTER FANCY WIRE DRAWER Unavailable Unavailable COOK, B CARTER FANCY WIRE DRAWER Unavailable Unavailable COOK, B CARTER FANCY WIRE DRAWER Unavailable Unavailable COOK, B CARTER FANCY WIRE DRAWER Unavailable Unavailable COOK, B CARTER FANCY WIRE DRAWER Unavailable Unavailable COOK, B CARTER FANCY WIRE DRAWER Unavailable Unavailable COOK, B CARTER FANCY WIRE DRAWER Unavailable Unavailable COOK, B CARTER FANCY WIRE DRAWER Unavailable Unavailable COOK, B CARTER FANCY WIRE DRAWER Unavailable Unavailable COOK, B CARTER FANCY WIRE DRAWER Unavailable Unavailable COOK, B CARTER FANCY WIRE DRAWER Unavailable Unavailable COOK, B CARTER FANCY WIRE DRAWER Unavailable Unavailable COOK, B CARTER FANCY WIRE DRAWER Unavailable Unavailable COOK, B CARTER FANCY WIRE DRAWER Unavailable Unavailable COOK, B CARTER FANCY WIRE DRAWER Unavailable Unavailable COOK, B CARTER FANCY WIRE DRAWER Unavailable Unavailable COOK, B CARTER FANCY WIRE DRAWER Unavailable Unavailable COOK, B CARTER FANCY WIRE DRAWER Unavailable Unavailable COOK, B CARTER FANCY WIRE DRAWER Unavailable Unavailable COOK, B CARTER FANCY WIRE DRAWER Unavailable Unavailable COOK, B CARTER FANCY WIRE DRAWER Unavailable Unavailable COOK, B CARTER FANCY WIRE DRAWER Unavailable Unavailable COOK, B CARTER FANCY WIRE DRAWER Unavailable Unavailable COOK, B CARTER FANCY WIRE DRAWER Unavailable Unavailable COOK, B CARTER FANCY WIRE DRAWER Unavailable Unavailable COOK, B CARTER FANCY WIRE DRAWER Unavailable Unavailable COOK, B CARTER FANCY WIRE DRAWER Unavailable Unavailable COOK, B CARTER FANCY WIRE DRAWER Unavailable Unavailable COOK, B CARTER FANCY WIRE DRAWER Unavailable Unavailable COOK, B CARTER FANCY WIRE DRAWER Unavailable Unavailable COOK, B CARTER FANCY WIRE DRAWER Unavailable Unavailable COOK, B CARTER FANCY WIRE DRAWER Unavailable Unavailable TEQUILA VALDIVIA Unavailable Unavailable Marco Antonio, E JANITORIAL MAINTENANCE WORKER Karoline Unavailable [phone] Marco Antonio, E JANITORIAL MAINTENANCE WORKER Karoline Unavailable [phone] Marco Antonio, E JANITORIAL MAINTENANCE WORKER Karoline Unavailable [phone] Marco Antonio, E JANITORIAL MAINTENANCE WORKER Karoline Unavailable [phone] Marco Antonio, E JANITORIAL MAINTENANCE WORKER Karoline Unavailable [phone] Marco Antonio, E JANITORIAL MAINTENANCE WORKER Karoline Unavailable [phone] Marco Antonio, E JANITORIAL MAINTENANCE WORKER Karoline Unavailable [phone] Marco Antonio, E JANITORIAL MAINTENANCE WORKER Karoline Unavailable [phone] Marco Antonio, E JANITORIAL MAINTENANCE WORKER Karoline Unavailable [phone] Marco Antonio, E JANITORIAL MAINTENANCE WORKER Karoline Unavailable [phone] Marco Antonio, E JANITORIAL MAINTENANCE WORKER Karoline Unavailable [phone] Marco Antonio, E JANITORIAL MAINTENANCE WORKER Karoline Unavailable [phone] Marco Antonio, E JANITORIAL MAINTENANCE WORKER Karoline Unavailable [phone] Marco Antonio, E JANITORIAL MAINTENANCE WORKER Karoline Unavailable [phone] Marco Antonio, E JANITORIAL MAINTENANCE WORKER Karoline Unavailable [phone] Marco Antonio, E JANITORIAL MAINTENANCE WORKER Karloine Unavailable [phone] NO, PCP Unavailable Unavailable Re-disclosure Warning The [...] is protected by Article 27-F of the [facility] Public Health law. If you continue you may have access to information: Regarding HIV / AIDS; Provided by facilities licensed or operated by the [facility] Office of Mental Health; or Provided by the [facility] Office for People With Developmental Disabilities. If such information is present, then the following [facility] mandated warning applies: This information has [...] law may result in a fine or care home sentence or both. A general authorization for the release of medical or other information is NOT sufficient authorization for further disc losure. Encounters Encounter Providers Location Date Indications Data Source(s ) Outpatient Attender: CARTER POTTER NP Physical Therapy 07/06/2020 0 1:45:00 PM [facility]ILA [facility]Y ([facility]) Outpatient Attender: Karoline Rea 07/02/2020 10:38:23 AM EST - 07/03/2020 09:05:00 AM [facility] Patient discharged. Outpatient Attender: TEQUILA VALDIVIA 06/29/2020 10:27:00 AM EST L65.8 [facility] L65.8 Outpatient Attender: CARTER POTTER NP Physical Therapy 06/23/2020 1 2:45:00 PM EST [facility] ([facility]) Outpatient Attender: Karoline Rea 06/16/2020 01:57:00 PM EST - 06/16/2020 02:57:00 PM [facility] Patient discharged. Outpatient Attender: Karoline ReaConsultant: PCP NO 06/01/2020 12:13:30 PM EST - 06/02/2020 02:51:00 PM [facility] Patient discharged. Outpatient 11/05/2019 04:57:00 AM EDT [facility] Insurance Providers Payer name Policy type / Coverage type Policy ID Covered green party ID Covered green party's relationship to millan Policy Millan Plan Information [facility] [employer] [id number] SP [id number] [facility] HUMA[employer] - O/P [id number] 18 [id number] [facility] O [id number] S [id number] Problems, Conditions, and Diagnoses Code Display Name Description Problem Type Effective Dates Data Source(s) R99 Ill-defined and unknown cause of mortali ty Ill-defined and unknown cause of mortality Diagnosis 07/03/2020 08:05:00 AM [facility] [id number] Migraine without aura, not intractable, without status migrainosus Migraine without aura, not intractable, without status migrainosus Diagnosis 06/16/2020 01:57:00 PM [facility] Results ID Date Data Source [id number] 06/29/2020 10:53:00 AM [facility] Name Value Range Interpretation Code Description Data Gracy rce(s) Supporting Document(s) Leukocytes [#/volume] in Blood by Automated count 7.0 10*3/uL 4.45-[address] [facility] Erythrocytes [#/volume] in Blood by Automated count 4.62 10*6/uL 4.20 -5.40 N [facility] Hemoglobin [Moles/volume] in Blood 12.5 g/dL 10.7-15.4 N [facility] Hematocrit [Volume Fraction] of Blood by Automated count 39.9 % 3 7-47 N [facility] Erythrocyte mean corpuscular volume [Ent itic volume] in Cord blood by Automated count 86.4 fL 80-[address] [facility] Erythrocyte mean corpuscular hemoglobin [Entitic mass] by Automated count 27.1 pg 27-31 N [facility] Erythrocyte mean corpuscular hemoglobin concentration [Mass/volume] in Cord blood 31.3 g/dL 33-37 Below low normal [facility] Erythrocyte distribution width [Entitic volume] by Automated count 13 % 11-15 N [facility] Platelets [#/volume] in Blood by Automated count 268 10*3/uL 130-472 N [facility] Platelet mean volume [Entitic volume] in Blood 9.8 fL 9.1-13.1 N [facility] Neutrophils/100 leukocytes in Blood by Automated count 64.4 % 41- 77 N [facility] Neutrophils [#/volume] in Blood by Automated count 4.5 U 1.7-7.6 N [facility] Lymphocytes/100 leukocytes in Blood by Automated count 30.7 % 14- 46 N [facility] Lymphocytes [#/volume] in Blood by Automated count 2.1 U 0.6-4.6 N [facility] Monocytes/100 leukocytes in Blood by Automated count 4.3 % 4-12 N [facility] Monocytes [#/volume] in Blood by Automated count 0.3 U 0.2-1.2 N [facility] Eosinophils/100 leukocytes in Blood by Automated count 0.1 % 0-7 N [facility] Eosinophils [#/volume] in Blood by Automated count 0.0 U 0.0-0.5 N [facility] Basophils/100 leukocytes in Blood by Automated count 0.4 % 0.4-1 .3 N [facility] Basophils [#/volume] in Blood by Automated count 0.0 U 0.0-0.2 N [facility] NUCLEATED RED BLOOD CELL 0 % [facility] NUCLEATED RED BLOOD CELL# 0 U [facility] Immature granulocytes [Presence] in Blood by Automated count 0-2 N [facility] Immature granulocytes [#/volume] in Blood by Automated count 0.0 U 0-0.1 N [facility] Manual Differential panel - Blood NO [facility] ID Date Data Source [id number] 06/29/2020 11:24:00 AM [facility] Name Value Range Interpretation Code Description Data Gracy rce(s) Supporting Document(s) Iron [Mass/volume] in Serum or Plasma 82 ug/dL 50-170 N [facility] Iron values may be falsely elevated in s anam samples frompatients treated with anticoagulants (e.g., hemodialysispatients) Iron binding capacity [Moles/volume] in Serum or Plasma 24 20 -55 N [facility] Iron binding capacity [Mass/volume] in Serum or Plasma 348 ug/dL 250 -450 N [facility] ID Date Data Source [id number] 06/29/2020 11:24:00 AM [facility] Name Value Range Interpretation Code Description Data Gracy rce(s) Supporting Document(s) Thyroxine (T4) free [Mass/volume] in Serum or Plasma 0.97 ng/dL 0.89- 1.76 N [facility] ID Date Data Source [id number] 06/29/2020 11:24:00 AM [facility] Name Value Range Interpretation Code Description Data Gracy rce(s) Supporting Document(s) Thyrotropin [Units/volume] in Serum or Plasma by Detec tion limit <= 0.005 mIU/L 1.48 u[iU]/mL 0.35-5.50 [facility] al ID Date Data Source [id number] 06/18/2020 09:47:00 [place] [address] PHONE: [phone] FAX: [phone] Name .................. : RADHA Connolly Acct Number.................. : [id number] ROOM. ................. : MR Number ................... : [id number] Stay type ............. : O/P Discharge Date......... ... : 06/16/20 Admit Date ......... : 06/16/20 Admit Phys .................... : MARCO ANTONIO HARDIN Date of ....... : 2000 Family Phys ................... : UNKNOWN CO Phone .................. : [phone] Age ................................ : 20 Film# .................. .:[id number] Sex ................................. : F Unsigned transcriptions are preliminary reports and do not represent a medical or legal document MRI BRAIN W/O CONTRAST [id number] COMPLETE:06/16/20 15:00 [facility] [id number] (REASON FOR PROCEDURE MIGRAINES MRI OF THE [...] Cigarettes com pleted Never Smoked Cigarettes [facility] ([facility]) Vital Signs ID Date Data Source UNK Name Value Range Interpretation Code Description Data Source(s) Oxygen saturation in Arterial blood by Pulse oximetry 99 % 99 % [facility] ([facility]) Body mass index (BMI) [Ratio] 24.5 kg/m2 24.5 k g/m2 [facility] ([facility]) Body weight 161.00 [lb_av] 161.00 [lb_av] [facility] T ([facility]) Body height 68 [in_i] 68 [in_i] [facility] ([facility]) 5'8" Body temperature 97.0 [degF] 97.0 [degF] [facility] ([facility]) Heart rate 81 /min 81 /min [facility] ([facility]) Diastolic blood pressure 65 mm[Hg] 65 mm[Hg] [facility] ([facility]) Systolic blood pressure 118 mm[Hg] 118 mm[Hg] M [facility] ([facility]) Oxygen saturation in Arterial blood by Pulse oximetry 99 % 99 % [facility] ([facility]) Body mass index (BMI) [Ratio] 24.2 kg/m2 24.2 k g/m2 [facility] ([facility]) Body weight 159.00 [lb_av] 159.00 [lb_av] [facility] T ([facility]) Body height 68 [in_i] 68 [in_i] [facility] ([facility]) 5'8" Body temperature 97.0 [degF] 97.0 [degF] [facility] ([facility] Heart rate 65 /min 65 /min [facility] ([facility] Diastolic blood pressure 75 mm[Hg] 75 mm[Hg] [facility] ([facility] Systolic blood pressure 115 mm[Hg] 115 mm[Hg] M [facility] ([facility])
== END 2020-08-31 21:15 | disposition home or self-care (01) ==
LOC: M ED 19:31
DX: B34.8 Other viral infections of unspecified site (principal)
CPT/HCPCS: 99282; U0003

== ENCOUNTER 2020-09-03 19:07 | Emergency (ER) | payer OTHER ==
[~2020-09-03] VITALS: Ht 175.3 cm; Wt 75.1 kg
[~2020-09-03 19:07] MED LIST changes: +IBUP-1022 PO; +PERC5TAB12 PO
--- OUTSIDE RECORDS SUMMARY | 2020-09-03 19:15 | CCD ---
Author Author [facility] Organization [facility] Address Unknown Phone Unavailable Care Team Providers Care Gin Clerk Name Role Phone COOK, B CARTER FEDERAL AID COORDINATOR Unavailable Unavailable COOK, B CARTER FEDERAL AID COORDINATOR Unavailable Unavailable COOK, B CARTER FEDERAL AID COORDINATOR Unavailable Unavailable COOK, B CARTER FEDERAL AID COORDINATOR Unavailable Unavailable COOK, B CARTER FEDERAL AID COORDINATOR Unavailable Unavailable COOK, B CRATER FEDERAL AID COORDINATOR Unavailable Unavailable COOK, B CARTER FEDERAL AID COORDINATOR Unavailable Unavailable COOK, B CARTER FEDERAL AID COORDINATOR Unavailable Unavailable COOK, B CARTER FEDERAL AID COORDINATOR Unavailable Unavailable COOK, B CARTER FEDERAL AID COORDINATOR Unavailable Unavailable COOK, B CARTER FEDERAL AID COORDINATOR Unavailable Unavailable COOK, B CARTER FEDERAL AID COORDINATOR Unavailable Unavailable COOK, B CARTER FEDERAL AID COORDINATOR Unavailable Unavailable COOK, B CARTER FEDERAL AID COORDINATOR Unavailable Unavailable COOK, B CARTER FEDERAL AID COORDINATOR Unavailable Unavailable COOK, B CARTER FEDERAL AID COORDINATOR Unavailable Unavailable COOK, B CARTER FEDERAL AID COORDINATOR Unavailable Unavailable COOK, B CARTER FEDERAL AID COORDINATOR Unavailable Unavailable COOK, B CARTER FEDERAL AID COORDINATOR Unavailable Unavailable COOK, B CARTER FEDERAL AID COORDINATOR Unavailable Unavailable COOK, B CARTER FEDERAL AID COORDINATOR Unavailable Unavailable COOK, B CARTER FEDERAL AID COORDINATOR Unavailable Unavailable COOK, B CARTER FEDERAL AID COORDINATOR Unavailable Unavailable COOK, B CARTER FEDERAL AID COORDINATOR Unavailable Unavailable COOK, B CARTER FEDERAL AID COORDINATOR Unavailable Unavailable COOK, B CARTER FEDERAL AID COORDINATOR Unavailable Unavailable COOK, B CARTER FEDERAL AID COORDINATOR Unavailable Unavailable COOK, B CARTER FEDERAL AID COORDINATOR Unavailable Unavailable COOK, B CARTER FEDERAL AID COORDINATOR Unavailable Unavailable COOK, B CARTER FEDERAL AID COORDINATOR Unavailable Unavailable COOK, B CARTER FEDERAL AID COORDINATOR Unavailable Unavailable COOK, B CARTER FEDERAL AID COORDINATOR Unavailable Unavailable COOK, B CARTER FEDERAL AID COORDINATOR Unavailable Unavailable COOK, B CARTER FEDERAL AID COORDINATOR Unavailable Unavailable COOK, B CARTER FEDERAL AID COORDINATOR Unavailable Unavailable COOK, B CARTER FEDERAL AID COORDINATOR Unavailable Unavailable COOK, B CARTER FEDERAL AID COORDINATOR Unavailable Unavailable COOK, B CARTER FEDERAL AID COORDINATOR Unavailable Unavailable COOK, B CARTER FEDERAL AID COORDINATOR Unavailable Unavailable COOK, B CARTER FEDERAL AID COORDINATOR Unavailable Unavailable COOK, B CARTER FEDERAL AID COORDINATOR Unavailable Unavailable COOK, B CARTER FEDERAL AID COORDINATOR Unavailable Unavailable COOK, B CARTER FEDERAL AID COORDINATOR Unavailable Unavailable COOK, B CARTER FEDERAL AID COORDINATOR Unavailable Unavailable COOK, B CARTER FEDERAL AID COORDINATOR Unavailable Unavailable COOK, B CARTER FEDERAL AID COORDINATOR Unavailable Unavailable COOK, B CARTER FEDERAL AID COORDINATOR Unavailable Unavailable COOK, B CARTER FEDERAL AID COORDINATOR Unavailable Unavailable COOK, B CARTER FEDERAL AID COORDINATOR Unavailable Unavailable COOK, B CARTER FEDERAL AID COORDINATOR Unavailable Unavailable COOK, B CARTER FEDERAL AID COORDINATOR Unavailable Unavailable COOK, B CARTER FEDERAL AID COORDINATOR Unavailable Unavailable COOK, B CARTER FEDERAL AID COORDINATOR Unavailable Unavailable COOK, B CARTER FEDERAL AID COORDINATOR Unavailable Unavailable COOK, B CARTER FEDERAL AID COORDINATOR Unavailable Unavailable COOK, B CARTER FEDERAL AID COORDINATOR Unavailable Unavailable COOK, B CARTER FEDERAL AID COORDINATOR Unavailable Unavailable COOK, B CARTER FEDERAL AID COORDINATOR Unavailable Unavailable COOK, B CARTER FEDERAL AID COORDINATOR Unavailable Unavailable COOK, B CARTER FEDERAL AID COORDINATOR Unavailable Unavailable COOK, B CARTER FEDERAL AID COORDINATOR Unavailable Unavailable COOK, B CARTER FEDERAL AID COORDINATOR Unavailable Unavailable COOK, B CARTER FEDERAL AID COORDINATOR Unavailable Unavailable COOK, B CARTER FEDERAL AID COORDINATOR Unavailable Unavailable TEQUILA VALDIVIA Unavailable Unavailable Marco Antonio, E ANTI TANK MISSILEMAN Karoline Unavailable [phone] Marco Antonio, E ANTI TANK MISSILEMAN Karoline Unavailable [phone] Marco Antonio, E ANTI TANK MISSILEMAN Karoline Unavailable [phone] Marco Antonio, E ANTI TANK MISSILEMAN Karoline Unavailable [phone] Marco Antonio, E ANTI TANK MISSILEMAN Karoline Unavailable [phone] Marco Antonio, E ANTI TANK MISSILEMAN Karoline Unavailable [phone] Marco Antonio, E ANTI TANK MISSILEMAN Karoline Unavailable [phone] Marco Antonio, E ANTI TANK MISSILEMAN Karoline Unavailable [phone] Marco Antonio, E ANTI TANK MISSILEMAN Karoline Unavailable [phone] Marco Antonio, E ANTI TANK MISSILEMAN Karoline Unavailable [phone] Marco Antonio, E ANTI TANK MISSILEMAN Karoline Unavailable [phone] Amrco Antonio, E ANTI TANK MISSILEMAN Karoline Unavailable [phone] Marco Antonio, E ANTI TANK MISSILEMAN Karoline Unavailable [phone] Marco Antonio, E ANTI TANK MISSILEMAN Karoline Unavailable [phone] Marco Antonio, E ANTI TANK MISSILEMAN Karoline Unavailable [phone] Marco Antonio, E ANTI TANK MISSILEMAN Karoline Unavailable [phone] NO, PCP Unavailable Unavailable Re-disclosure Warning The [...] is protected by Article 27-F of the [facility] Public Health law. If you continue you may have access to information: Regarding HIV / AIDS; Provided by facilities licensed or operated by the [facility] Office of Mental Health; or Provided by the [facility] Office for People With Developmental Disabilities. If such information is present, then the following [facility] mandated warning applies: This information has been [...] law may result in a fine or [place] [facility] [place] sentence or both. A general authorization for the release of medical or other information is NOT sufficient authorization for further disc losure. Encounters Encounter Providers Location Date Indications Data Source(s ) Outpatient Attender: CARTER POTTER NP Physical Therapy 07/06/2020 0 1:45:00 PM [facility]ILA STALEY ([facility]) Outpatient Attender: Karoline Rea 07/02/2020 10:38:23 AM EST - 07/03/2020 09:05:00 AM [facility] Patient discharged. Outpatient Attender: TEQUILA VALDIVIA 06/29/2020 10:27:00 AM EST L65.8 [facility] L65.8 Outpatient Attender: CARTER POTTER NP Physical Therapy 06/23/2020 1 2:45:00 PM EST [facility] ([facility]) Outpatient Attender: Karoline Rea 06/16/2020 01:57:00 PM EST - 06/16/2020 02:57:00 PM [facility] Patient discharged. Outpatient Attender: Karoline ReaConsultant: PCP NO 06/01/2020 12:13:30 PM EST - 06/02/2020 02:51:00 PM [facility] Patient discharged. Outpatient 11/05/2019 04:57:00 AM EDT [facility] Insurance Providers Payer name Policy type / Coverage type Policy ID Covered republican ID Covered republican's relationship to millan Policy Millan Plan Information [facility] ACTIVE D[employer] [id number] SP [id number] [facility] HUMANA - O/P [id number] 18 [id number] [facility] REG O [id number] S [id number] Problems, Conditions, and Diagnoses Code Display Name Description Problem Type Effective Dates Data Source(s) R99 Ill-defined and unknown cause of mortali ty Ill-defined and unknown cause of mortality Diagnosis 07/03/2020 08:05:00 AM [facility] [id number] Migraine without aura, not intractable, without status migrainosus Migraine without aura, not intractable, without status migrainosus Diagnosis 06/16/2020 01:57:00 PM [facility] Results ID Date Data Source [id number] 08/31/2020 08:44:00 PM EST [facility] Name Value Range Interpretation Code Description Data Gracy rce(s) Supporting Document(s) SARS COVID ANTIGEN NEGATIVE [facility] This lab was ordered by REGINE mcadams nd reported by [facility]. ID Date Data Source [id number] 06/29/2020 10:53:00 AM EST [facility] Name Value Range Interpretation Code Description Data Gracy rce(s) Supporting Document(s) Leukocytes [#/volume] in Blood by Automated count 7.0 10*3/uL 4.45-10 .71 N [facility] Erythrocytes [#/volume] in Blood by Automated count 4.62 10*6/uL 4.20 -5.40 N [facility] Hemoglobin [Moles/volume] in Blood 12.5 g/dL 10.7-15.4 N [facility] Hematocrit [Volume Fraction] of Blood by Automated count 39.9 % 3 7-47 N [facility] Erythrocyte mean corpuscular volume [Ent itic volume] in Cord blood by Automated count 86.4 fL 80-96 N [facility] Erythrocyte mean corpuscular hemoglobin [Entitic mass] by Automated count 27.1 pg 27-31 N [facility] Erythrocyte mean corpuscular hemoglobin concentration [Mass/volume] in Cord blood 31.3 g/dL 33-37 Below low normal [facility] Erythrocyte distribution width [Entitic volume] by Automated count 13 % 11-15 N [facility] Platelets [#/volume] in Blood by Automated count 268 10*3/uL 130-472 N [facility] Platelet mean volume [Entitic volume] in Blood 9.8 fL 9.1-13.1 N [facility] Neutrophils/100 leukocytes in Blood by Automated count 64.4 % 41- 77 N [facility] Neutrophils [#/volume] in Blood by Automated count 4.5 U 1.7-7.6 N [facility] Lymphocytes/100 leukocytes in Blood by Automated count 30.7 % 14- 46 N [facility] Lymphocytes [#/volume] in Blood by Automated count 2.1 U 0.6-4.6 N [facility] Monocytes/100 leukocytes in Blood by Automated count 4.3 % 4-12 N [facility] Monocytes [#/volume] in Blood by Automated count 0.3 U 0.2-1.2 N [facility] Eosinophils/100 leukocytes in Blood by Automated count 0.1 % 0-7 N [facility] Eosinophils [#/volume] in Blood by Automated count 0.0 U 0.0-0.5 N [facility] Basophils/100 leukocytes in Blood by Automated count 0.4 % 0.4-1 .3 N [facility] Basophils [#/volume] in Blood by Automated count 0.0 U 0.0-0.2 N [facility] NUCLEATED RED BLOOD CELL 0 % [facility] NUCLEATED RED BLOOD CELL# 0 U [facility] Immature granulocytes [Presence] in Blood by Automated count 0-2 N [facility] Immature granulocytes [#/volume] in Blood by Automated count 0.0 U 0-0.1 N [facility] Manual Differential panel - Blood NO [facility] ID Date Data Source [id number] 06/29/2020 11:24:00 AM [facility] Name Value Range Interpretation Code Description Data Gracy rce(s) Supporting Document(s) Iron [Mass/volume] in Serum or Plasma 82 ug/dL 50-170 [facility] Iron values may be falsely elevated in s anam samples frompatients treated with anticoagulants (e.g., hemodialysispatients) Iron binding capacity [Moles/volume] in Serum or Plasma 24 20 -55 N [facility] Iron binding capacity [Mass/volume] in Serum or Plasma 348 ug/dL 250 -450 [facility] ID Date Data Source [id number] 06/29/2020 11:24:00 AM [facility] Name Value Range Interpretation Code Description Data Gracy rce(s) Supporting Document(s) Thyroxine (T4) free [Mass/volume] in Serum or Plasma 0.97 ng/dL 0.89- 1.76 [facility] ID Date Data Source [id number] 06/29/2020 11:24:00 AM [facility] Name Value Range Interpretation Code Description Data Gracy rce(s) Supporting Document(s) Thyrotropin [Units/volume] in Serum or Plasma by Detec tion limit <= 0.005 mIU/L 1.48 [facility][iU[facility] Data Source [id number] 06/18/2020 09:47:00 AM [facility] [address] [place] [address] PHONE: [phone] FAX: [phone] Name .................. : RADHA Mcadams Acct Number.................. : [id number] ROOM. ................. : MR Number ................... : [id number] Stay type ............. : O/P Discharge Date......... ... : 06/16/20 Admit Date ......... : 06/16/20 Admit Phys .................... : MARCO ANTONIO LASHAWN Date of ....... : 2000 Family Phys ................... : UNKNOWN CO Phone .................. : [phone] Age ................................ : 20 Film# .................. .:[id number] Sex ................................. : F Unsigned transcriptions are preliminary reports and do not represent a medical or legal document MRI BRAIN W/O CONTRAST [id number] COMPLETE:06/16/20 15:00 [facility] [id number] (REASON FOR PROCEDURE MIGRAINES MRI OF THE [...] By Rhiannon Noe MD , 06/18/20 09:47, KGG Transcribe Initials: DZ , Transcribe Date: 06/16/20 23:25, Dictation Date: Copy for: MARCO ANTONIO MONTEMAYOR Copy for: Jacky MED REC Page 1 of 1 Name [...] 97.0 [degF] [facility] ([facility]) Heart rate 65 /min 65 /min [facility] ([facility]) Diastolic blood pressure 75 mm[Hg] 75 mm[Hg] LUÍS ([facility] Systolic blood pressure 115 mm[Hg] 115 mm[Hg] Jennifer CHARLES ([facility] )
[2020-09-03] MEDS ORDERED: SUMA25TA3 (19:17)
[2020-09-03] MEDS ORDERED: GABA-1171 (19:17)
[2020-09-03] MEDS ORDERED: LIDO1PAD (19:17)
[2020-09-03] MEDS ORDERED: PROAAER10 (19:17)
[2020-09-03] MEDS ORDERED: HYDR-4570 (19:17)
[2020-09-03] MEDS ORDERED: BUPR150T4 (19:17)
[2020-09-03] MEDS ORDERED: TRET0.02 (19:17)
[2020-09-03] MEDS ORDERED: ACZO5GEL2 (19:17)
[2020-09-03] MEDS ORDERED: CELE1CAP7 (19:17)
[2020-09-03] MEDS ORDERED: VITA1CAP25 (19:17)
--- OUTSIDE RECORDS SUMMARY | 2020-09-03 21:13 | CCD ---
Author Author [facility] Organization [facility] Address Unknown Phone Unavailable Care Team Providers Care Chiropractic Doctor Name Role Phone COOK, B CARTER LANG PATH THERAPIST Unavailable Unavailable COOK, B CARTER LANG PATH THERAPIST Unavailable Unavailable COOK, B CARTER LANG PATH THERAPIST Unavailable Unavailable COOK, B CARTER LANG PATH THERAPIST Unavailable Unavailable COOK, B CARTER LANG PATH THERAPIST Unavailable Unavailable COOK, B CARTER LANG PATH THERAPIST Unavailable Unavailable COOK, B CARTER LANG PATH THERAPIST Unavailable Unavailable COOK, B CARTER LANG PATH THERAPIST Unavailable Unavailable COOK, B CARTER LANG PATH THERAPIST Unavailable Unavailable COOK, B CARTER LANG PATH THERAPIST Unavailable Unavailable COOK, B CARTER LANG PATH THERAPIST Unavailable Unavailable COOK, B CARTER LANG PATH THERAPIST Unavailable Unavailable COOK, B CARTER LANG PATH THERAPIST Unavailable Unavailable COOK, B CARTER LANG PATH THERAPIST Unavailable Unavailable COOK, B CARTER LANG PATH THERAPIST Unavailable Unavailable COOK, B CARTER LANG PATH THERAPIST Unavailable Unavailable COOK, B CARTER LANG PATH THERAPIST Unavailable Unavailable COOK, B CARTER LANG PATH THERAPIST Unavailable Unavailable COOK, B CARTER LANG PATH THERAPIST Unavailable Unavailable COOK, B CARTER LANG PATH THERAPIST Unavailable Unavailable COOK, B CARTER LANG PATH THERAPIST Unavailable Unavailable COOK, B CARTER LANG PATH THERAPIST Unavailable Unavailable COOK, B CARTER LANG PATH THERAPIST Unavailable Unavailable COOK, B CARTER LANG PATH THERAPIST Unavailable Unavailable COOK, B CARTER LANG PATH THERAPIST Unavailable Unavailable COOK, B CARTER LANG PATH THERAPIST Unavailable Unavailable COOK, B CARTER LANG PATH THERAPIST Unavailable Unavailable COOK, B CARTER LANG PATH THERAPIST Unavailable Unavailable COOK, B CARTER LANG PATH THERAPIST Unavailable Unavailable COOK, B CARTER LANG PATH THERAPIST Unavailable Unavailable COOK, B CARTER LANG PATH THERAPIST Unavailable Unavailable COOK, B CARTER LANG PATH THERAPIST Unavailable Unavailable COOK, B CARTER LANG PATH THERAPIST Unavailable Unavailable COOK, B CARTER LANG PATH THERAPIST Unavailable Unavailable COOK, B CARTER LANG PATH THERAPIST Unavailable Unavailable COOK, B CARTER LANG PATH THERAPIST Unavailable Unavailable COOK, B CARTER LANG PATH THERAPIST Unavailable Unavailable COOK, B CARTER LANG PATH THERAPIST Unavailable Unavailable COOK, B CARTER LANG PATH THERAPIST Unavailable Unavailable COOK, B CARTER LANG PATH THERAPIST Unavailable Unavailable COOK, B CARTER LANG PATH THERAPIST Unavailable Unavailable COOK, B CARTER LANG PATH THERAPIST Unavailable Unavailable COOK, B CARTER LANG PATH THERAPIST Unavailable Unavailable COOK, B CARTER LANG PATH THERAPIST Unavailable Unavailable COOK, B CARTER LANG PATH THERAPIST Unavailable Unavailable COOK, B CARTER LANG PATH THERAPIST Unavailable Unavailable COOK, B CARTER LANG PATH THERAPIST Unavailable Unavailable COOK, B CARTER LANG PATH THERAPIST Unavailable Unavailable COOK, B CARTER LANG PATH THERAPIST Unavailable Unavailable COOK, B CARTER LANG PATH THERAPIST Unavailable Unavailable COOK, B CARTER LANG PATH THERAPIST Unavailable Unavailable COOK, B CARTER LANG PATH THERAPIST Unavailable Unavailable COOK, B CARTER LANG PATH THERAPIST Unavailable Unavailable COOK, B CARTER LANG PATH THERAPIST Unavailable Unavailable COOK, B CARTER LANG PATH THERAPIST Unavailable Unavailable COOK, B CARTER LANG PATH THERAPIST Unavailable Unavailable COOK, B CARTER LANG PATH THERAPIST Unavailable Unavailable COOK, B CARTER LANG PATH THERAPIST Unavailable Unavailable COOK, B CARTER LANG PATH THERAPIST Unavailable Unavailable COOK, B CARTER LANG PATH THERAPIST Unavailable Unavailable COOK, B CARTER LANG PATH THERAPIST Unavailable Unavailable COOK, B CARETR LANG PATH THERAPIST Unavailable Unavailable COOK, B CARTER LANG PATH THERAPIST Unavailable Unavailable COOK, B CARTER LANG PATH THERAPIST Unavailable Unavailable TEQUILA VALDIVIA Unavailable Unavailable Marco Antonio, E COUNTY ADVISER Karoline Unavailable [phone] Marco Antonio, E COUNTY ADVISER Karoline Unavailable [phone] Marco Antonio, E COUNTY ADVISER Karloine Unavailable [phone] Marco Antonio, E COUNTY ADVISER Karoline Unavailable [phone] Marco Antonio, E COUNTY ADVISER Karoline Unavailable [phone] Marco Antonio, E COUNTY ADVISER Karoline Unavailable [phone] Marco Antonio, E COUNTY ADVISER Karoline Unavailable [phone] Marco Antonio, E COUNTY ADVISER Karoline Unavailable [phone] Marco Antonio, E COUNTY ADVISER Karoline Unavailable [phone] Marco Antonio, E COUNTY ADVISER Karoline Unavailable [phone] Marco Antonio, E COUNTY ADVISER Karoline Unavailable [phone] Marco Antonio, E COUNTY ADVISER Karoline Unavailable [phone] Marco Antonio, E COUNTY ADVISER Karoline Unavailable [phone] Marco Antonio, E COUNTY ADVISER Karoline Unavailable [phone] Marco Antonio, E COUNTY ADVISER Karoline Unavailable [phone] Marco Antonio, E COUNTY ADVISER Karoline Unavailable [phone] NO, PCP Unavailable Unavailable Re-disclosure Warning The [...] is protected by Article 27-F of the [facility] Public Health law. If you continue you may have access to information: Regarding HIV / AIDS; Provided by facilities licensed or operated by the [facility] Office of Mental Health; or Provided by the [facility] Office for People With Developmental Disabilities. If such information is present, then the following [facility] mandated warning applies: This information has been [...] law may result in a fine or detention sentence or both. A general authorization for the release of medical or other information is NOT sufficient authorization for further disc losure. Encounters Encounter Providers Location Date Indications Data Source(s ) Outpatient Attender: CARTER POTTER NP Physical Therapy 07/06/2020 0 1:45:00 PM LILA STALEY ([facility]) Outpatient Attender: Karoline Rea 07/02/2020 10:38:23 AM EST - 07/03/2020 09:05:[address] [facility] Patient discharged. Outpatient Attender: TEQUILA VALDIVIA 06/29/2020 10:27:[address] [facility] L65.8 Outpatient Attender: CARTER POTTER NP Physical Therapy 06/23/2020 1 2:45:00 PM EST MEDKESHIA ([facility]) Outpatient Attender: Karoline Rea 06/16/2020 01:57:00 PM EST - 06/16/2020 02:57:[address] [facility] Patient discharged. Outpatient Attender: Karoline ReaConsultant: PCP NO 06/01/2020 12:13:30 PM EST - 06/02/2020 02:51:[address] [facility] Patient discharged. Outpatient 11/05/2019 04:57:00 AM EDT [facility] Insurance Providers Payer name Policy type / Coverage type Policy ID Covered alliance party ID Covered alliance party's relationship to millan Policy Millan Plan Information [facility] [id number] SP [id number] [facility] [employer] - O/P [id number] 18 [id number] [facility] O [id number] S [id number] Problems, Conditions, and Diagnoses Code Display Name Description Problem Type Effective Dates Data Source(s) R99 Ill-defined and unknown cause of mortali ty Ill-defined and unknown cause of mortality Diagnosis 07/03/2020 08:05:[address] [facility] [id number] Migraine without aura, not intractable, without status migrainosus Migraine without aura, not intractable, without status migrainosus Diagnosis 06/16/2020 01:57:[address] [facility] Results ID Date Data Source [id number] 08/31/2020 08:44:00 PM EST [facility] Name Value Range Interpretation Code Description Data Gracy rce(s) Supporting Document(s) SARS COVID ANTIGEN NEGATIVE [facility] This lab was ordered by REGINE mcadams nd reported by [facility]. ID Date Data Source [id number] 06/29/2020 10:53:[address] [facility] Name Value Range Interpretation Code Description Data Gracy rce(s) Supporting Document(s) Leukocytes [#/volume] in Blood by Automated count 7.0 10*3/uL 4.45-[address] [facility] Erythrocytes [#/volume] in Blood by Automated count 4.62 10*6/uL 4.20 -5.[address] [facility] Hemoglobin [Moles/volume] in Blood 12.5 g/dL 10.7-15.[address] [facility] Hematocrit [Volume Fraction] of Blood by Automated count 39.9 % 3 7-[address] [facility] Erythrocyte mean corpuscular volume [Ent itic volume] in Cord blood by Automated count 86.4 fL 80-96 N [facility] Erythrocyte mean corpuscular hemoglobin [Entitic mass] by Automated count 27.1 pg 27-31 N [facility] Erythrocyte mean corpuscular hemoglobin concentration [Mass/volume] in Cord blood 31.3 g/dL 33-37 Below low normal [facility] Erythrocyte distribution width [Entitic volume] by Automated count 13 % 11-[address] [facility] Platelets [#/volume] in Blood by Automated count 268 10*3/uL 130-[address] [facility] Platelet mean volume [Entitic volume] in Blood 9.8 fL 9.1-13.[address] [facility] Neutrophils/100 leukocytes in Blood by Automated count 64.4 % 41- [address] [facility] Neutrophils [#/volume] in Blood by Automated count 4.5 U 1.7-7.[address] [facility] Lymphocytes/100 leukocytes in Blood by Automated count 30.7 % 14- [address] [facility] Lymphocytes [#/volume] in Blood by Automated count 2.1 U 0.6-4.[address] [facility] Monocytes/100 leukocytes in Blood by Automated count 4.3 % 4-[address] [facility] Monocytes [#/volume] in Blood by Automated count 0.3 U 0.2-1.[address] [facility] Eosinophils/100 leukocytes in Blood by Automated count 0.1 % 0-[address] [facility] Eosinophils [#/volume] in Blood by Automated count 0.0 U 0.0-0.[address] [facility] Basophils/100 leukocytes in Blood by Automated count 0.4 % 0.4-[address] [facility] Basophils [#/volume] in Blood by Automated count 0.0 U 0.0-0.[address] [facility] NUCLEATED RED BLOOD CELL 0 % [facility] NUCLEATED RED BLOOD CELL# 0 U [facility] Immature granulocytes [Presence] in Blood by Automated count 0-[address] [facility] Immature granulocytes [#/volume] in Blood by Automated count 0.0 U 0-0.[address] [facility] Manual Differential panel - Blood NO [facility] ID Date Data Source [id number] 06/29/2020 11:24:00 AM [facility] Name Value Range Interpretation Code Description Data Gracy rce(s) Supporting Document(s) Iron [Mass/volume] in Serum or Plasma 82 ug/dL 50-[address] [facility] Iron values may be falsely elevated in s anam samples frompatients treated with anticoagulants (e.g., hemodialysispatients) Iron binding capacity [Moles/volume] in Serum or Plasma 24 20 -[address] [facility] Iron binding capacity [Mass/volume] in Serum or Plasma 348 ug/dL 250 -450 [facility] ID Date Data Source [id number] 06/29/2020 11:24:00 AM [facility] Name Value Range Interpretation Code Description Data Gracy rce(s) Supporting Document(s) Thyroxine (T4) free [Mass/volume] in Serum or Plasma 0.97 ng/dL 0.89- 1.76 [facility] ID Date Data Source [id number] 06/29/2020 11:24:00 AM [facility] Name Value Range Interpretation Code Description Data Gracy rce(s) Supporting Document(s) Thyrotropin [Units/volume] in Serum or Plasma by Detec tion limit <= 0.005 mIU/L 1.48 u[iU]/mL [facility] ID Date Data Source [id number] 06/18/2020 09:47:00 AM [facility] [address] [place] [address] PHONE: [phone] FAX: [phone] Name .................. : RADHA Mcadams Acct Number.................. : [id number] ROOM. ................. : MR Number ................... : [id number] Stay type ............. : O/P Discharge Date......... ... : 06/16/20 Admit Date ......... : 06/16/20 Admit Phys .................... : MARCO ANTONIO LASHAWN Date of ....... : 2000 Family Phys ................... : UNKNOWN CO Phone .................. : [phone] Age ................................ : 20 Film# .................. .:[id number] Sex ................................. : F Unsigned transcriptions are preliminary reports and do not represent a medical or legal document MRI BRAIN W/O CONTRAST [id number] COMPLETE:06/16/20 15:00 [facility] [id number] (REASON FOR PROCEDURE MIGRAINES MRI OF THE [...] Cigarettes com pleted Never Smoked Cigarettes [facility] ([facility]) Vital Signs ID Date Data Source UNK Name Value Range Interpretation Code Description Data Source(s) Oxygen saturation in Arterial blood by Pulse oximetry 99 % 99 % [facility] ([facility]) Body mass index (BMI) [Ratio] 24.5 kg/m2 24.5 k g/m2 [facility] ([facility]) Body weight 161.00 [lb_av] 161.00 [lb_av] [facility] T ([facility]) Body height 68 [in_i] 68 [in_i] [facility] ([facility]) 5'8" Body temperature 97.0 [degF] 97.0 [degF] [facility] ([facility]) Heart rate 81 /min 81 /min [facility] ([facility]) Diastolic blood pressure 65 mm[Hg] 65 mm[Hg] [facility] ([facility]) Systolic blood pressure 118 mm[Hg] 118 mm[Hg] M [facility] ([facility]) Oxygen saturation in Arterial blood by Pulse oximetry 99 % 99 % [facility] ([facility]) Body mass index (BMI) [Ratio] 24.2 kg/m2 24.2 k g/m2 [facility] ([facility]) Body weight 159.00 [lb_av] 159.00 [lb_av] [facility] T ([facility]) Body height 68 [in_i] 68 [in_i] [facility] ([facility]) 5'8" Body temperature 97.0 [degF] 97.0 [degF] [facility] ([facility]) Heart rate 65 /min 65 /min [facility] ([facility]) Diastolic blood pressure 75 mm[Hg] 75 mm[Hg] LUÍS ([facility] Systolic blood pressure 115 mm[Hg] 115 mm[Hg] Jennifer CHARLES ([facility] )
[2020-09-03] MEDS ORDERED: diphenhydrAMINE 50MG/ML VIAL (J1200) IV STA (22:01)
[2020-09-03] MEDS ORDERED: NS 1,000 ML IV ONE (22:15)
[2020-09-03] MEDS ORDERED: METOCLOPRAMIDE INJ 10MG/2ML VIAL (J2765 PER 1) IV ONE (22:15)
[2020-09-03] MEDS ORDERED: KETOROLAC 30 MG/ML 1ML VIAL IV ONE (22:15)
[2020-09-03 22:35] LABS: BASO % 0.3 % (0.0-1.0); EOS # 0.1 10^3/uL (0.0-0.5); HEMATOCRIT 39.5 % (36.0-47.0); HEMOGLOBIN 12.1 g/dl (12.0-15.5); LYMPH # 2.6 10^3/uL (1.5-5.0); MEAN CORPUSCULAR HEMOGLOBIN 26.2 pg (27.0-33.0); MEAN CORPUSCULAR HGB CONC 30.6 g/dl (32.0-36.5); MEAN CORPUSCULAR VOLUME 85.7 fl (80.0-96.0); MONO # 0.5 10^3/uL (0.0-0.8); MONO % 8.9 % (2.0-8.0); NEUTROPHILS # 2.8 10^3/uL (1.5-8.5); NEUTROPHILS % 46.6 % (36.0-66.0); PLATELET COUNT, AUTOMATED 307 10^3/uL (150-450); RED BLOOD COUNT 4.61 10^6/uL (4.00-5.40)
--- NOTE | 2020-09-03 23:02 | REPVR ---
PROCEDURE INFORMATION: Exam: CT Head Without Contrast Exam date and time: 09/03/2020 10:50 PM Age: 20 years old Clinical indication: Pain; Headache; Additional info: HERRING posterior, different from usual TECHNIQUE: Imaging protocol: Computed tomography of the head without contrast. Radiation optimization: All CT scans at this facility use at least one of these dose optimization techniques: automated exposure control; mA and/or kV adjustment per patient size (includes targeted exams where dose is matched to clinical indication); or iterative reconstruction. COMPARISON: No relevant prior studies available. FINDINGS: Brain: Normal. No hemorrhage. Unremarkable white matter. No mass effect. Cerebral ventricles: No ventriculomegaly. Bones/joints: Unremarkable. No acute fracture. Paranasal sinuses: Visualized sinuses are unremarkable. No fluid levels. Mastoid air cells: Visualized mastoid air cells are well aerated. Soft tissues: Unremarkable. IMPRESSION: No acute intracranial abnormality. Electronically signed by: Kin Coulter On 09/03/2020 23:02:44 PM
[2020-09-03] MEDS ORDERED: methylPREDNISolone 125MG 2ML VIAL IV ONE (23:30)
[2020-09-04] MEDS ORDERED: MAG SULF 1GM/100ML (MAG RUN) 1 GM in IV 1 EA IV ONE (00:30)
[2020-09-04] MEDS ORDERED: IBUP80TA PO (01:47)
[2020-09-04 01:54] VITALS: BP 158/71
== END 2020-09-04 02:03 | disposition home or self-care (01) ==
LOC: M ED 19:07
DX: R51.9 Headache, unspecified (principal); Z79.899 Other long term (current) drug therapy
CPT/HCPCS: 70450; 80047; 83735; 84702; 85025; 96365; 96375; 99284; J1200; J1885; J2765; J2930; J3475

== ENCOUNTER 2020-11-01 23:16 | Emergency (ER) | payer OTHER ==
[~2020-11-01] VITALS: Ht 175.3 cm; Wt 73.9 kg
[~2020-11-01 23:16] MED LIST changes: +ACZO5GEL2; +BUPR150T12; +CELE1CAP7; +GABA-1171; +HYDR-4570; +IBUP80TA PO; +LIDO1PAD; +PROAAER10; +SUMA25TA3; +TRET0.02; +VITA1CAP25
[2020-11-02] MEDS ORDERED: predniSONE 20 MG TAB PO ONE (01:50)
[2020-11-02] MEDS ORDERED: PRED20TA PO (02:02)
[2020-11-02] MEDS ORDERED: LORA-622 PO (02:02)
[2020-11-02] MEDS ORDERED: diphenhydrAMINE 25MG CAP PO ONE (02:25)
[2020-11-02 02:29] VITALS: BP 116/67
== END 2020-11-02 02:32 | disposition home or self-care (01) ==
LOC: M ED 23:16
DX: L25.9 Unspecified contact dermatitis, unspecified cause (principal); F33.9 Major depressive disorder, recurrent, unspecified; F41.9 Anxiety disorder, unspecified; G43.909 Migraine, unspecified, not intractable, without status migrainosus; Z79.899 Other long term (current) drug therapy

== ENCOUNTER 2021-01-19 15:19 | Emergency (ER) | payer OTHER ==
[~2021-01-19] VITALS: Ht 177.8 cm; Wt 74.5 kg
[~2021-01-19 15:19] MED LIST changes: -DOXY100C37 PO; +DOXY1CAP62 PO; +LORA-622 PO; +PRED20TA PO
[2021-01-19 15:20] VITALS: BP 116/72
[2021-01-19] MEDS ORDERED: METOCLOPRAMIDE 10 MG TAB PO ONE ×2 (18:30→20:45)
[2021-01-19] MEDS ORDERED: SUMAtriptan SUCCINATE 25 MG TAB PO ONE (18:30)
[2021-01-19] MEDS ORDERED: KETOROLAC TROMETHAMINE 10 MG TAB PO ONE (18:30)
[2021-01-19 19:24] LABS: BASO % 0.4 % (0.0-1.0); EOS % 0.4 % (0.0-3.0); HEMATOCRIT 40.6 % (36.0-47.0); HEMOGLOBIN 12.9 g/dl (12.0-15.5); LYMPH # 2.8 10^3/uL (1.5-5.0); LYMPH % 34.4 % (24.0-44.0); MEAN CORPUSCULAR HEMOGLOBIN 27.3 pg (27.0-33.0); MEAN CORPUSCULAR HGB CONC 31.8 g/dl (32.0-36.5); MONO # 0.5 10^3/uL (0.0-0.8); MONO % 6.7 % (2.0-8.0); NEUTROPHILS # 4.7 10^3/uL (1.5-8.5); NEUTROPHILS % 57.9 % (36.0-66.0); PLATELET COUNT, AUTOMATED 328 10^3/uL (150-450); RED BLOOD COUNT 4.72 10^6/uL (4.00-5.40); WHITE BLOOD COUNT 8.1 10^3/uL (4.0-10.0)
[2021-01-19 19:27] LABS: APPEARANCE, URINE HAZY (CLEAR); BACTERIA, URINE AUTO NEGATIVE (NEGATIVE); BILIRUBIN, URINE AUTO NEGATIVE (NEGATIVE); BLOOD, URINE BLOOD NEGATIVE (NEGATIVE); COLOR, URINE YELLOW (YELLOW); GLUCOSE, URINE (UA) AUTO 1+ mg/dL (NEGATIVE); KETONE, URINE AUTO NEGATIVE (NEGATIVE); LEUKOCYTE ESTERASE, URINE AUTO 3+ (NEGATIVE); MUCUS, URINE SMALL (NEGATIVE); NITRITE, URINE AUTO NEGATIVE (NEGATIVE); PROTEIN, URINE AUTO NEGATIVE (NEGATIVE); RBC, URINE AUTO 3 /HPF (0-3); SPECIFIC GRAVITY URINE AUTO 1.021 (1.002-1.035); SQUAMOUS EPITHELIAL CELL UR AU 9 /HPF (0-6); UROBILINOGEN, URINE AUTO 0.2 mg/dL (0.0-2.0); WBC, URINE AUTO 7 /HPF (0-3)
[2021-01-19 19:31] LABS: ALBUMIN 3.7 GM/DL (3.2-5.2); ALT/SGPT 24 U/L (12-78); BILIRUBIN,DIRECT < 0.1 MG/DL (0.0-0.2); BILIRUBIN,TOTAL 0.2 MG/DL (0.2-1.0); LIPASE 39 U/L (73-393); MAGNESIUM LEVEL 2.3 MG/DL (1.8-2.4); TOTAL PROTEIN 6.9 GM/DL (6.4-8.2)
[2021-01-19] MEDS ORDERED: REGL10TA6 PO (20:44)
[2021-01-19] MEDS ORDERED: ACETAMINOPHEN 500 MG TAB PO ONE (20:45)
== END 2021-01-19 20:57 | disposition home or self-care (01) ==
LOC: M ED 15:19
DX: O21.9 Vomiting of pregnancy, unspecified (principal); O99.891 Other specified diseases and conditions complicating pregnancy; R51.9 Headache, unspecified; Z3A.01 Less than 8 weeks gestation of pregnancy; Z79.899 Other long term (current) drug therapy

== ENCOUNTER 2021-02-09 14:03 | Emergency (ER) | payer OTHER ==
[~2021-02-09] VITALS: Ht 175.3 cm; Wt 74.1 kg
[~2021-02-09 14:03] MED LIST changes: +DOXY-443 PO; -DOXY1CAP62 PO; +REGL10TA6 PO
[2021-02-09] MEDS ORDERED: ESCITALOPRAM PO (14:19)
[2021-02-09] MEDS ORDERED: KETOROLAC 30 MG/ML 1ML VIAL IV ONE (17:15)
[2021-02-09] MEDS ORDERED: NS 1,000 ML IV ONE (17:15)
[2021-02-09 18:16] LABS: BASO % 0.2 % (0.0-1.0); EOS % 0.4 % (0.0-3.0); HEMATOCRIT 37.9 % (36.0-47.0); HEMOGLOBIN 12.2 g/dl (12.0-15.5); LYMPH # 0.4 10^3/uL (1.5-5.0); LYMPH % 7.8 % (24.0-44.0); MEAN CORPUSCULAR HEMOGLOBIN 27.4 pg (27.0-33.0); MEAN CORPUSCULAR HGB CONC 32.2 g/dl (32.0-36.5); MONO # 0.6 10^3/uL (0.0-0.8); MONO % 10.7 % (2.0-8.0); NEUTROPHILS # 4.5 10^3/uL (1.5-8.5); NEUTROPHILS % 80.5 % (36.0-66.0); PLATELET COUNT, AUTOMATED 255 10^3/uL (150-450); RED BLOOD COUNT 4.46 10^6/uL (4.00-5.40); WHITE BLOOD COUNT 5.5 10^3/uL (4.0-10.0)
[2021-02-09 19:00] LABS: ERYTHROCYTE SEDIMENTATION RATE 8 mm/hr (0-20)
[2021-02-09 19:09] LABS: C REACTIVE PROTEIN QUANTITATIV < 0.30 MG/DL (0.00-0.30); CPK CREATINE PHOSPHOKINASE 129 U/L (26-192); HCG, SERUM QUANTITATIVE 2533 MIU/ML
[2021-02-09] MEDS ORDERED: LIDOCAINE 4% CREAM 5GM (LMX4) TOP ONE (20:10)
[2021-02-09] MEDS ORDERED: ACETAMINOPHEN 500 MG TAB PO ONE (20:10)
[2021-02-09] MEDS ORDERED: ANEC4CRE3 TOP (22:58)
[2021-02-09] MEDS ORDERED: NAPR-837 PO (22:58)
[2021-02-09] MEDS ORDERED: HYDR-3713 PO (22:58)
[2021-02-09] MEDS ORDERED: NORCO 5/325MG TABLET (BULK FOR ED) PO ONE (23:00)
[2021-02-09 23:13] VITALS: BP 115/61
== END 2021-02-09 23:14 | disposition home or self-care (01) ==
LOC: M ED 14:03
DX: I80.292 Phlebitis and thrombophlebitis of other deep vessels of left lower extremity (principal); N73.9 Female pelvic inflammatory disease, unspecified; R51.9 Headache, unspecified; Z79.899 Other long term (current) drug therapy
CPT/HCPCS: 76801; 76817; 80047; 82550; 84702; 85025; 85652; 86140; 86901; 93971; 93976; 96361; 96374; 99284; J1885